=== PATIENT | male | born 1970 | race Caucasian/White ===

== ENCOUNTER 2017-07-29 20:26 | Emergency (ER) | payer SELFPAY ==
[~2017-07-29] VITALS: Ht 165.1 cm; Wt 100.4 kg
[2017-07-29 20:33] VITALS: BP 189/101
--- NOTE | 2017-07-29 20:36 | NUR ---
PT.AMBULATED TO ER BED 4
--- NOTE | 2017-07-29 20:40 | NUR ---
PATIENT PRESENTS TO ED WITH EYE PAIN. PT STATES IT HAPPENED SUDDENLY X1 DAY. DENIES N/V/D; SKIN IS PINK/WARM/DRY; NOTED REDNESS TO LEFT EYE. AAOX4 WITH EVEN AND STEADY GAIT; LUNGS CLEAR BL; HR EVEN AND REGULAR; PT DENIES ANY FEVER, CP, SOB, OR COUGH AT THIS TIME; PATIENT STATES PAIN OF 5/10 AT THIS TIME; VSS; PATIENT POSITIONED FOR COMFORT; HOB ELEVATED; BEDRAILS UP X2; BED DOWN. ER MD MADE AWARE OF PT STATUS.
[2017-07-29] MEDS ORDERED: FLUORESCEIN OPTH STRIP 0.6 MG ONE (21:17)
[2017-07-29] MEDS ORDERED: TETRACAINE HCL/PF 0.5% OPTH 4 ML BTL ONE (21:18)
[2017-07-29] MEDS ORDERED: TETRACAINE HCL/PF 0.5% OPTH 4 ML BTL OP ONE (21:20)
[2017-07-29] MEDS ORDERED: FLUORESCEIN OPTH STRIP 0.6 MG OP ONE (21:20)
[2017-07-29 22:15] VITALS: BP 175/95
--- NOTE | 2017-07-29 22:15 | NUR ---
Patient discharged with v/s stable. Written and verbal after care instructions given and explained. Patient alert, oriented and verbalized understanding of instructions. Ambulatory with steady gait. All questions addressed prior to discharge. ID band removed. Patient advised to follow up with PMD. Rx of TOBRAMYCIN 0.3% AND NAPROSYN 500MG given. Patient educated on indication of medication including possible reaction and side effects. Opportunity to ask questions provided and answered.
== END 2017-07-29 22:15 | disposition home or self-care (01) ==
LOC: MED 20:26
DX: S05.02XA Injury of conjunctiva and corneal abrasion without foreign body, left eye, initial encounter (principal); X58.XXXA Exposure to other specified factors, initial encounter; Y93.89 Activity, other specified; Y92.89 Other specified places as the place of occurrence of the external cause; Y99.8 Other external cause status
CPT/HCPCS: 99283

== ENCOUNTER 2017-08-01 18:19 | Emergency (ER) | payer SELFPAY ==
[~2017-08-01] VITALS: Ht 165.1 cm; Wt 100.3 kg
[2017-08-01 18:34] VITALS: BP 175/105
--- NOTE | 2017-08-01 18:38 | NUR ---
PT AMBULATES BACK TO THE LOBBY
--- NOTE | 2017-08-01 19:18 | NUR ---
Pt presents to ED with potential metal flake in sclera of left eye. Pt states he was grinding metal when a piece may have flew into his eye. Pt states stinging pain 2/10, redness, blurred vision, no drainage. Bilateral Eyes PERRLA. ER MD aware. VSS. Continue to monitor.
[2017-08-01] MEDS ORDERED: TETRACAINE HCL/PF 0.5% OPTH 4 ML BTL OP ONE (20:00)
[2017-08-01] MEDS ORDERED: FLUORESCEIN OPTH STRIP 0.6 MG ONE (20:25)
--- NOTE | 2017-08-01 20:58 | NUR ---
at 2030 Dr. Santoyo at chairside for eye exam. Pt tolerated procedure well. Eye flushed x10 min at eye was station. Pt tolerated procedure well.
[2017-08-01 21:50] VITALS: BP 175/105
--- NOTE | 2017-08-01 21:50 | NUR ---
Patient discharged with v/s stable by Dr. Santoyo. Written and verbal after care instructions given and explained. Patient verbalized understanding. Ambulatory with steady gait. All questions addressed prior to discharge. Advised to follow up with PMD.
== END 2017-08-01 21:50 | disposition home or self-care (01) ==
LOC: MED 18:19
DX: H57.12 Ocular pain, left eye (principal); R03.0 Elevated blood-pressure reading, without diagnosis of hypertension
CPT/HCPCS: 99283